=== PATIENT | male | born 1975 | race Caucasian/White ===

== ENCOUNTER 2021-10-09 20:01 | Emergency (ER) | payer OTHER, BC ==
[2021-10-09] MEDS ORDERED: Sodium Chloride 0.9% 1,000 ML IV ONE (20:05)
[2021-10-09 20:27] LABS: BLOOD UREA NITROGEN,BUN 15 mg/dL (7.0-18.0); CARBON DIOXIDE,CO2 24.5 mmol/L (21.0-32.0); CHLORIDE,CL 100 mmol/L (98-107); GLUCOSE RANDOM 109 mg/dL (74-106); LIPASE 114 U/L (73-393); POTASSIUM,K 3.5 mmol/L (3.5-5.1); SODIUM,NA 137 mmol/L (136-148)
[2021-10-09 20:35] VITALS: BP 146/100; PULSE 110
[2021-10-09] MEDS ORDERED: Diphtheria,Pertussis(Acell),Tetanus Vaccine 0.5 ML Syringe IM ONE (21:17)
== END 2021-10-09 23:16 | disposition home or self-care (01) ==
LOC: MW.ED 20:01
DX: S80.212A Abrasion, left knee, initial encounter (principal); S80.812A Abrasion, left lower leg, initial encounter; R07.89 Other chest pain; Z23 Encounter for immunization; Z79.899 Other long term (current) drug therapy; V69.49XA Driver of heavy transport vehicle injured in collision with other motor vehicles in traffic accident, initial encounter; Y92.410 Unspecified street and highway as the place of occurrence of the external cause
CPT/HCPCS: 36415; 70450; 71260; 72125; 73564; 73590; 74177; 80053; 80307; 81003; 83690; 85025; 85610; 90471; 90715; 93005; 99285; J7030; 99284

== ENCOUNTER 2022-06-24 14:43 | Emergency (ER) | payer BC ==
[2022-06-24 15:33] VITALS: BP 124/84; PULSE 111
[2022-06-24] MEDS ORDERED: Sodium Chloride 0.9% 2.5 ML Syringe FLUSH PRN (16:17)
[2022-06-24] MEDS ORDERED: Sodium Chloride 0.9% 10 ML Syringe FLUSH PRN (16:17)
[2022-06-24 17:14] LABS: CARBON DIOXIDE,CO2 25.2 mmol/L (21.0-32.0); POTASSIUM,K 3.8 mmol/L (3.5-5.1)
== END 2022-06-24 19:06 | disposition home or self-care (01) ==
LOC: MW.ED 14:43
DX: I47.9 Paroxysmal tachycardia, unspecified (principal); U09.9 Post COVID-19 condition, unspecified
CPT/HCPCS: 36415; 80053; 83735; 84443; 84484; 85025; 93005; 99285; J3490